=== PATIENT | male | born 1975 | race Caucasian/White ===

== ENCOUNTER 2019-12-25 04:27 | Emergency (ER) | payer OTHER ==
[~2019-12-25] VITALS: Ht 170.2 cm; Wt 83.2 kg
--- NOTE | 2019-12-25 04:29 | PHYS DOC ---
Past History Past Medical History: Anxiety, Depression, GI Bleed, Kidney Stones (LYNN EDWARDS MD) Past Surgical History Circumcision (LYNN EDWARDS MD) Smoking: Cigarettes (LYNN EDWARDS MD) General Adult HPI: HPI: ".. This gut pain .. started about 5 days ago.. my had me drink bottle of Mag. Citrate.. and I had diarrhea... but the pain persisted..and now it is much worse.. 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 Pt. works in [employer] at [place]. Pain is been present for the last 5 days but states it 6 times worse this morning. No history of bad food intake. No history of trauma. No recent overseas travel. 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 Pt normally very healthy. Patient has remote history of duodenal ulcers 2004 but has had no reoccurrence for years. Had a colonoscopy and EGD in 2004. No colon lesions or findings of inflammatory bowel. Had only duodenal ulcers on EGD.. Has had a history of 1 previous kidney stone. There is a family history of bone cancer. He has had short episodes of anxiety and depression after the of his . Patient does smoke. Last ate yesterday. Has not had any tarry stools. (LYNN EDWARDS MD) Review of Systems: Review of Systems: Constitutional: Denies fever or chills Eyes: Denies change in visual acuity HENT: Denies nasal congestion or sore throat Respiratory: Denies cough or shortness of breath Cardiovascular: Denies chest pain or edema GI: Complains of severe abdominal pain, nausea. Denies, vomiting, bloody stools or diarrhea : Denies dysuria Musculoskeletal: Denies back pain or joint pain Integument: Denies rash Neurologic: Denies headache, focal weakness or sensory changes Endocrine: Denies polyuria or polydipsia Lymphatic: Denies swollen glands Psychiatric: Denies depression or anxiety (LYNN EDWARDS MD) Heart Score: HEART Score for Chest Pain: HEART Score for Chest Pain Response (Comments) Value Risk Factors 1 or 2 Risk Factors 1 Total 1 Risk Factors: Risk Factors: DM, Current or recent (<one month) smoker, HTN, HLP, family history of CAD, obesity. Risk Scores: Score 0 - 3: 2.5% MACE over next 6 weeks - Discharge Home Score 4 - 6: 20.3% MACE over next 6 weeks - Admit for Clinical Observation Score 7 - 10: 72.7% MACE over next 6 weeks - Early Invasive Strategies (LYNN EDWARDS MD) Family History: Family History: Bone cancer (LYNN EDWARDS MD) Current Medications: Current Meds: See penitentiary meds (LYNN EDWARDS MD) Allergies: Allergies: No known drug allergies (LYNN EDWARDS MD) Physical Exam: PE: Constitutional: Well developed, well nourished, in acute distress, non-toxic appearance. [] HENT: Normocephalic, atraumatic, bilateral external ears normal, oropharynx moist, no oral exudates, nose normal. [] Eyes: PERRLA, EOMI, conjunctiva normal, no discharge. [] Neck: Normal range of motion, no tenderness, supple, no stridor. [] Cardiovascular:Heart rate regular rhythm, no murmur [] Lungs & Thorax: Bilateral breath sounds equal apexes scattered wheezes on auscultation [] Abdomen: Bowel sounds decreased, guarding, mild right upper quadrant, but marked right lower quadrant tenderness, no masses, no pulsatile masses. Rebound right lower quadrant. Circumcised male. Testicles descended. Skin: Warm, dry, no erythema, no rash. Tattoos. Small subcu lipomas Back: No tenderness, no CVA tenderness. [] Extremities: No tenderness, no cyanosis, no clubbing, ROM intact, no edema. Significantly positive psoas sign on right + heel Tap. Neurologic: Alert and oriented X 3, normal motor function, normal sensory functi on, no focal deficits noted. [] Psychologic: Affect anxious, judgement normal, mood normal. [] (LYNN EDWARDS MD) EKG: EKG: My interpretation EKG shows a sinus rhythm at 85 bpm. There is mild leftward axis changes. But no findings of acute STEMI of contralateral changes. [] (LYNN EDWADRS MD) Radiology/Procedures: Radiology/Procedures: [][address] [address] IMAGING REPORT Signed PATIENT: JAIRON PANTOJA DACCOUNT: [id number] : 1975 LOCATION: ER AGE: 44 SEX: M EXAM STATUS: REG ER ORD. PHYSICIAN: LYNN EDWARDS MD REASON: abdomen pain PROCEDURE: ACUTE ABDOMEN SERIES PA chest and AP upright supine abdomen x-rays HISTORY: Abdominal pain. FINDINGS: Heart size normal. Tortuosity/aneurysm of the ascending aorta. No pulmonary opacities. No pleural effusions. Mild scarring at the minor fissure. No pneumoperitoneum. No dilation of the bowel or abnormal air-fluid levels. Mild volume of stool within the large bowel. Bones and soft tissues are unremarkable. IMPRESSION: No acute process in the chest. No bowel obstruction evident. See above. Electronically signed by: Bhavik Greene MD (12/25/2019 5:18 AM) [facility] [place]CTATED AND SIGNED BY: BHAVIK GREENE MD DATE: 12/25/19517 CC: LYNN EDWARDS MD; PCP,UNKNOWN ~ (LYNN EDWARDS MD) Radiology/Procedures: [address] [address] IMAGING REPORT Signed PATIENT: JAIRON PANTOJA DACCOUNT: [id number] : 1975 LOCATION: ER AGE: 44 SEX: M EXAM STATUS: REG ER ORD. PHYSICIAN: LYNN EDWARDS MD REASON: severe rt. side abd. pain -[id number] PROCEDURE: CT ABD PELV W/ORAL&IV CONTRAST EXAMINATION: CT ABD PELV W/ORAL IV CONTRAST CLINICAL HISTORY: Severe right-sided abdominal pain TECHNIQUE: CT of the abdomen and pelvis was performed using standard technique, scanning from just above the dome of the diaphragm to the symphysis pubis following administration of intravenous contrast. CT Dose Reduction Employed: One or more of the following individualized dose reduction techniques were utilized for this examination: 1. Automated exposure control 2. Adjustment of the mA and/or kV according to patient size 3. Use of iterative reconstruction technique. COMPARISON: None FINDINGS: Lower thorax: Bibasilar dependent subsegmental atelectasis. Liver: Multiple hypoenhancing foci throughout the liver measuring up to 1 cm likely represent small cysts. Biliary: No bile duct dilation. Gallbladder is unremarkable. Spleen: No mass. No splenomegaly. Pancreas: No mass or duct dilation. Adrenals: No mass. Kidneys: Probable subcentimeter cyst in the right lower pole. No calculus or hydronephrosis. GI tract: No dilation or wall thickening. Dilated appendix measuring up to 1.4 cm in diameter with appendiceal wall thickening. Moderate periappendiceal inflammatory stranding and adjacent mild dependent free fluid. No visualized appendicolith or evidence of periappendiceal abscess. Lymph nodes: No abdominal or pelvic lymphadenopathy. Mesentery/Peritoneum: No ascites or mass. Retroperitoneum: No mass. Vasculature: The celiac axis and SMA are patent. The portal vein and branches, splenic vein, SMV, and hepatic veins are patent. Arterial atherosclerotic disease without aneurysm. Pelvis: No mass, ascites or fluid collection. Mildly filled urinary bladder. Coarse central prostatic calcifications. Bones/Soft Tissues: Thoracolumbar degenerative changes. Intraosseous hemangioma in the L4 vertebral body. IMPRESSION: Acute appendicitis with moderate periappendiceal inflammation as described. FOR INTERNAL CODING PURPOSES Critical result: Findings discussed with LYNN EDWARDS at 12/25/2019 7:36 AM. RESULT CODE: (C) Electronically signed by: Deejay Tamayo DO (12/25/2019 7:43 AM) [id number] DICTATED AND SIGNED BY: DEEJAY TAMAYO DO DATE: 12/25/19 0743 CC: LYNN EDWARDS MD; PCP,UNKNOWN; IBIS ESCAMILLA DO ~ (IBIS ESCAMILLA DO) Course & Med Decision Making: Course & Med Decision Making Pertinent Labs and Imaging studies reviewed. (See chart for details) COVID test ordered for possible transfer and surgical admission. Pt. 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 Pt. vomiting 0600. Pt. endorsed to Dr. Escamilla at shift change. He will make disposition on pt. I had pt sign transfer authorization shorty after presentation. . I suspect acute appendicitis. Plan transfer for surgery. CT pending at shift change. Will cover with Rocephin/ Flagyl. Impression: 1. Abdomen Pain- Clinical exam consistent with acute appendicitis 2. Leukocytosis 13. 2 [] (LYNN EDWARDS MD) Course & Med Decision Making I have received signout on the patient's emergency department care from Dr. Edwards. We discussed the history, physical exam findings, completed and pending laboratory results and imaging studies. We have also discussed the current treatment plan and expected clinical course. Please refer to further update notes for additional information regarding the patient's final diagnosis and disposition. In brief patient is a 44-year-old male who presents with chief complaint of abdominal pain associated with vomiting. On initial arrival exam notable for peritonitis and guarding. CT imaging does reveal acute appendicitis. Leukocytosis of 13,000. No previous surgical history. Patient will require transfer to [facility] for surgical care. He has been given Rocephin and Flagyl. Pain is been well controlled. He has been made n.p.o. discussed case with surgeon Dr. Ferris who will evaluate the patient for surgical intervention today. Patient will be transferred to [facility] for further care. (IBIS ESCAMILLA DO) Dragon Disclaimer: Dragon Disclaimer: This electronic medical record was generated, in whole or in part, using a voice recognition dictation system. (LYNN EDWARDS MD) Departure Departure: Impression: Primary Impression: Acute appendicitis Qualified Codes: K35.30 - Acute appendicitis with localized peritonitis, without perforation or gangrene Disposition: XF [facility] Condition: STABLE Referrals: PCP,UNKNOWN (PCP) Dragon Disclaimer This chart was dictated in whole or in part using Voice Recognition software in a busy, high-work load, and often noisy Emergency Department environment. It may contain unintended and wholly unrecognized errors or omissions. (LYNN EDWARDS MD) Dragon Disclaimer This chart was dictated in whole or in part using Voice Recognition software in a busy, high-work load, and often noisy Emergency Department environment. It may contain unintended and wholly unrecognized errors or omissions. (LYNN EDWARDS MD) LYNN EDWARDS MD Dec 25, 2019 04:29 IBIS ESCAMILLA DO Dec 25, 2019 07:47
[2019-12-25] MEDS ORDERED: MORPHINE SULFATE 10 MG/ML SYRINGE. SQ ONE (05:00)
[2019-12-25] MEDS ORDERED: IV RINGERS SOLUTION,LACTATED 1,000 ML IV SCH (05:00)
[2019-12-25] MEDS ORDERED: FAMOTIDINE 20 MG/2 ML VIAL IVP ONE (05:00)
[2019-12-25] MEDS ORDERED: ONDANSETRON PF 4 MG/2 ML VIAL. IVP ONE ×2 (05:00→06:00)
--- NOTE | 2019-12-25 05:21 | RAD ---
PA chest and AP upright supine abdomen x-rays HISTORY: Abdominal pain. FINDINGS: Heart size normal. Tortuosity/aneurysm of the ascending aorta. No pulmonary opacities. No pleural effusions. Mild scarring at the minor fissure. No pneumoperitoneum. No dilation of the bowel or abnormal air-fluid levels. Mild volume of stool within the large bowel. Bones and soft tissues are unremarkable. IMPRESSION: No acute process in the chest. No bowel obstruction evident. See above. Electronically signed by: Ja Greene MD (12/25/2019 5:18 AM) [facility]
[2019-12-25] MEDS ORDERED: cefTRIAXone SODIUM 1 GM VIAL ONE (05:44)
[2019-12-25] MEDS ORDERED: IV NORMAL SALINE 50ML 50 ML ONE (05:44)
[2019-12-25 05:45] LABS: BARBITURATES NEG (NEG); BENZODIAZEPINES NEG (NEG); CANNABINOIDS NEG (NEG); COCAINE NEG (NEG); METHADONE NEG (NEG); OPIATES NEG (NEG); PHENCYCLIDINE NEG (NEG)
[2019-12-25] MEDS ORDERED: IOHEXOL 240 MG/ML 50ML VIAL. PO ONE ×2 (05:45→06:00)
[2019-12-25] MEDS ORDERED: IOHEXOL 300 MG/ML 75 ML VIAL. IV ONE ×2 (05:45→06:00)
[2019-12-25 05:46] LABS: CALCIUM 8.7 mg/dL (8.5-10.1); GFR 81.9; POTASSIUM 3.3 mmol/L (3.5-5.1)
[2019-12-25 05:48] LABS: BASO % 0 % (0-3); EOS # 0.1 x10^3/uL (0.0-0.7); EOS % 1 % (0-3); HEMATOCRIT 50.3 % (39.0-53.0); HEMOGLOBIN 16.9 g/dL (13.0-17.5); LYMPH # 2.8 x10^3/uL (1.0-4.8); LYMPH % 21 % (24-48); MEAN CORPUSCULAR HEMOGLOBIN 33 pg (25-35); MEAN CORPUSCULAR HGB CONC 34 g/dL (31-37); MEAN CORPUSCULAR VOLUME 99 fL (79-100); MONO % 8 % (0-9); NEUT # 9.3 x10^3uL (1.8-7.7); NEUT % 70 % (31-73); PLATELET COUNT 275 x10^3/uL (140-400); RED BLOOD COUNT 5.09 x10^6/uL (4.30-5.70); WHITE BLOOD COUNT 13.2 x10^3/uL (4.0-11.0)
[2019-12-25 05:51] LABS: BACTERIA,URINE FEW /HPF (0-FEW); BILIRUBIN,URINE NEG (NEG); CLARITY,URINE HAZY; COLOR,URINE AMBER; GLUCOSE,URINE NEG (NEG); NITRITE,URINE NEG (NEG); SQUAMOUS EPITHELIAL CELL,UR OCC /LPF; UROBILINOGEN,URINE 0.2 mg/dL (0.2 mg/dL); WBC,URINE 0 /HPF (0-4)
[2019-12-25 05:52] LABS: ALBUMIN 3.7 g/dL (3.4-5.0); DIRECT BILIRUBIN 0.1 mg/dL (0.0-0.2); TOTAL BILIRUBIN 0.3 mg/dL (0.2-1.0); TOTAL PROTEIN 7.3 g/dL (6.4-8.2)
[2019-12-25 05:52] LABS: SPERM,URINE PRESENT /HPF
[2019-12-25 05:56] LABS: AMPHETAMINE/METHAMPHETAMINE NEG (NEG)
[2019-12-25] MEDS ORDERED: CONTRAST GIVEN. MC PRN (06:15)
[2019-12-25] MEDS ORDERED: HYDROmorphone PF 1 MG/ML DISP.SYRIN IV ONE ×2 (06:30→08:30)
--- NOTE | 2019-12-25 06:54 | EKG ---
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
--- NOTE | 2019-12-25 07:46 | RAD ---
EXAMINATION: CT ABD PELV W/ORAL IV CONTRAST CLINICAL HISTORY: Severe right-sided abdominal pain TECHNIQUE: CT of the abdomen and pelvis was performed using standard technique, scanning from just above the dome of the diaphragm to the symphysis pubis following administration of intravenous contrast. CT Dose Reduction Employed: One or more of the following individualized dose reduction techniques were utilized for this examination: 1. Automated exposure control 2. Adjustment of the mA and/or kV according to patient size 3. Use of iterative reconstruction technique. COMPARISON: None FINDINGS: Lower thorax: Bibasilar dependent subsegmental atelectasis. Liver: Multiple hypoenhancing foci throughout the liver measuring up to 1 cm likely represent small cysts. Biliary: No bile duct dilation. Gallbladder is unremarkable. Spleen: No mass. No splenomegaly. Pancreas: No mass or duct dilation. Adrenals: No mass. Kidneys: Probable subcentimeter cyst in the right lower pole. No calculus or hydronephrosis. GI tract: No dilation or wall thickening. Dilated appendix measuring up to 1.4 cm in diameter with appendiceal wall thickening. Moderate periappendiceal inflammatory stranding and adjacent mild dependent free fluid. No visualized appendicolith or evidence of periappendiceal abscess. Lymph nodes: No abdominal or pelvic lymphadenopathy. Mesentery/Peritoneum: No ascites or mass. Retroperitoneum: No mass. Vasculature: The celiac axis and SMA are patent. The portal vein and branches, splenic vein, SMV, and hepatic veins are patent. Arterial atherosclerotic disease without aneurysm. Pelvis: No mass, ascites or fluid collection. Mildly filled urinary bladder. Coarse central prostatic calcifications. Bones/Soft Tissues: Thoracolumbar degenerative changes. Intraosseous hemangioma in the L4 vertebral body. IMPRESSION: Acute appendicitis with moderate periappendiceal inflammation as described. FOR INTERNAL CODING PURPOSES Critical result: Findings discussed with LYNN BREWER at 12/25/2019 7:36 AM. RESULT CODE: (C) Electronically signed by: Deejay Joel DO (12/25/2019 7:43 AM) [id number]
[2019-12-25] MEDS ORDERED: IV NORMAL SALINE 1,000ML 1,000 ML IV ONE (08:00)
[2019-12-25] MEDS ORDERED: KETAMINE HCL 500 MG/10 ML VIAL. IV ONE (10:30)
[2019-12-25 10:38] VITALS: BP 135/86
== END 2019-12-25 10:47 | disposition short-term general hospital (02) ==
LOC: ER 04:27
DX: K35.30 Acute appendicitis with localized peritonitis, without perforation or gangrene (principal); F17.210 Nicotine dependence, cigarettes, uncomplicated; Z87.442 Personal history of urinary calculi
CPT/HCPCS: 36415; 74022; 74177; 80048; 80076; 80307; 81001; 82150; 82550; 83605; 83690; 84484; 85025; 85610; 85730; 93005; 96361; 96365; 96368; 96372; 96375; 96376; 99285; J0696; J1170; J2270; J2405; J3490; J7030; J7120; Q9966; Q9967

== ENCOUNTER 2020-05-24 15:33 | Emergency (ER) | payer OTHER ==
[~2020-05-24] VITALS: Ht 170.2 cm; Wt 83.2 kg
[2020-05-24 15:43] VITALS: BP 135/86
[2020-05-24] MEDS ORDERED: MORPHINE SULFATE 4 MG/ML DISP.SYRIN. IV ONE (16:15)
[2020-05-24] MEDS ORDERED: ONDANSETRON PF 4 MG/2 ML VIAL. IVP ONE (16:15)
[2020-05-24] MEDS ORDERED: KETOROLAC 30 MG/ML VIAL. IVP ONE (16:15)
[2020-05-24] MEDS ORDERED: IV NORMAL SALINE 1,000ML 1,000 ML IV ONE (16:15)
--- NOTE | 2020-05-24 16:35 | RAD ---
Exam: CT of abdomen and pelvis without contrast INDICATION: Left-sided flank pain TECHNIQUE: Sequential axial images through the abdomen and pelvis obtained without IV contrast. Sagit rom and coronal reformatted images were reconstructed from the axial data and reviewed. Comparisons: 12/25/2019 FINDINGS: Heart size is normal. No pericardial effusion. Strandy opacities at dependent portion lungs likely re presenting atelectasis. No pleural effusion Evaluation of solid organs is limited secondary to noncontrast technique. Diffuse hepatic steatosis. There is a vague hypoattenuating lesion at the mid right hepatic lobe seri es 2 image 45. Spleen, pancreas, gallbladder and adrenals are unremarkable. There is a 2 mm calculus at the left ureterovesicular junction. Mild left-sided hydronephrosis is not ed. No other renal or ureteral calculi are identified. Bladder is partially distended and not well evaluated. Prostate is not enlarged. Large and small bowel are unremarkable. Appendix is not identified. No free intra-abdominal air or fl uid. No obstruction. Abdominal aorta has a normal course and caliber. No enlarged intra-abdominal lymph nodes are identified. No suspicious osseous lesions or acute fractures. IMPRESSION: 1. A 2 mm calculus at the left ureterovesicular junction with mild left-sided hydronephrosis. 2. Diffuse hepatic steatosis. Exposure: One or more of the following in the visualized dose reduction techniques were utilized for this examination: 1. Automated exposure control 2. Adjustment of the MA and/or KV according to patient size 3. Use of iterative of reconstructive technique Electronically signed by: Beatris Haddad MD (05/24/2020 4:33 PM) [facility]
--- NOTE | 2020-05-24 16:44 | PHYS DOC ---
Past History Past Medical History: Anxiety, Depression, GI Bleed, Kidney Stones Past Surgical History: Other Additional Past Surgical Histo: hemorrhoidectomy; EGD/colonoscopy Smoking: Cigarettes Alcohol Use: Rarely Adult General Chief Complaint Chief Complaint: FLANK PAIN [facility] HPI Patient is a 45-year-old male who presents to the emergency room complaining of left-sided flank pain that feels like he is being stabbed repeatedly. He states he had similar pain in 2012 when he had a kidney stone. He is not a kidney stone since that time. He does have some burning with urination but denies any other urinary symptoms. He denies any, nausea or vomiting. Is not had any known fever. Pain has been constant since noon today. It did let up a little bit around 2:00 but then came back much worse. Review of Systems Review of Systems Complete ROS is negative unless otherwise documented in HPI Current Medications Current Medications Current Medications Medications (Trade) Dose Ordered Sig/Ramin Start Time Stop Time Status Last Admin Dose Admin Ketorolac Tromethamine (Toradol 30mg Vial) 30 mg 1X ONCE 05/24/20 16:15 05/24/20 16:26 DC Morphine Sulfate (Morphine 4mg Syringe) 4 mg 1X ONCE 05/24/20 16:15 05/24/20 16:26 DC Ondansetron HCl (Zofran) 4 mg 1X ONCE 05/24/20 16:15 05/24/20 16:26 DC Sodium Chloride 1,000 ml @ 1,000 mls/hr 1X ONCE 05/24/20 16:15 05/24/20 17:14 Allergies Allergies Allergies Coded Allergies Type Severity Reaction Last Updated Verified No Known Drug Allergies 12/25/19 No Physical Exam Physical Exam General: Awake, alert, tearful. Well Nourished, well hydrated. Cooperative HEENT: Atraumatic, EOMI, PERRL, airway patent, moist oral mucosa Neck: Supple, trachea midline Respiratory: CTA bilaterally, normal effort, no wheezing/crackles CV: RRR, no murmur, cap refill <2 GI: Soft, nondistended, nontender, no masses MSK: No obvious deformities Skin: Warm, dry, intact Neuro: A&O x3, speech NL, sensory and motor grossly intact, no focal deficits Psych: Normal affect, normal mood, not suicidal or homicidal EKG EKG [] Radiology/Procedures Radiology/Procedures [] Heart Score Risk Factors: Risk Factors: DM, Current or recent (<one month) smoker, HTN, HLP, family history of CAD, obesity. Risk Scores: Risk Factors: DM, Current or recent (<one month) smoker, HTN, HLP, family history of CAD, obesity. Course & Med Decision Making Course & Med Decision Making Pertinent Labs and Imaging studies reviewed. (See chart for details) Patient is a 45 year old who presents to the Emergency Room complaining of flank pain. On exam, patient is tearful and has a soft nonacute abdomen. Patient's presentation is concerning for a possible kidney stone. Patient was given morphine and Toradol for pain relief. CBC, BMP, UA were ordered to evaluate for kidney function and infection. CT abdomen and pelvis without contrast was ordered to evaluate for a kidney stone. CT shows 2 mm stone. At this time, patient does not have significant infection, signs of sepsis, TANIA, or uncontrolled pain that requires admission. Patient will be treated symptomatically and referred to urology. Patient's test results and vitals while in the ED were fully reviewed and discussed with the patient. Patient is stable and at this time does not need admission to the hospital. We have discussed strict return precautions and the importance of following up with their Primary Care Physician. Patient stated understanding and was given an opportunity to ask any questions. Patient is in agreement with plan. Dragon Disclaimer Dragon Disclaimer This electronic medical record was generated, in whole or in part, using a voice recognition dictation system. Departure Departure: Impression: Primary Impression: Kidney stone Disposition: 01 DC HOME SELF CARE/HOMELESS Condition: STABLE Referrals: DARBY CAICEDO DO (PCP) Patient Instructions: Kidney Stones Scripts Oxycodone HCl/Acetaminophen (Percocet 5-325 mg Tablet) 1 Each Tablet 1 TAB PO PRN TID PRN for PAIN MDD 3 Tablet(s) for 5 Days, #15 TAB 0 Refills Prov: KEVIN LINARES MD 05/24/20 KEVIN LINARES MD May 24, 2020 16:44
[2020-05-24 16:56] LABS: BASO % 1 % (0-3); EOS % 1 % (0-3); HEMATOCRIT 47.1 % (39.0-53.0); HEMOGLOBIN 16.2 g/dL (13.0-17.5); LYMPH # 2.3 x10^3/uL (1.0-4.8); LYMPH % 34 % (24-48); MEAN CORPUSCULAR HEMOGLOBIN 36 pg (25-35); MEAN CORPUSCULAR HGB CONC 34 g/dL (31-37); MEAN CORPUSCULAR VOLUME 103 fL (79-100); MONO # 0.7 x10^3/uL (0.0-1.1); MONO % 10 % (0-9); NEUT # 3.6 x10^3uL (1.8-7.7); NEUT % 55 % (31-73); PLATELET COUNT 229 x10^3/uL (140-400); RED BLOOD COUNT 4.56 x10^6/uL (4.30-5.70); RED CELL DISTRIBUTION WIDTH 15.5 % (11.5-14.5); WHITE BLOOD COUNT 6.7 x10^3/uL (4.0-11.0)
[2020-05-24 17:19] LABS: CALCIUM 8.4 mg/dL (8.5-10.1); CREATININE 1.1 mg/dL (0.7-1.3); GFR 73.1; POTASSIUM 3.4 mmol/L (3.5-5.1)
[2020-05-24] MEDS ORDERED: OXYC-325 PO (17:25)
[2020-05-24] MEDS ORDERED: oxyCODONE/APAP 10/325 1 TAB TABLET PO ONE (17:30)
[2020-05-24 18:19] LABS: BILIRUBIN,URINE SMALL (NEG); CLARITY,URINE CLEAR; COLOR,URINE AMBER; GLUCOSE,URINE NEG (NEG)
[2020-05-24 18:20] LABS: BACTERIA,URINE 0 /HPF (0-FEW); NITRITE,URINE POS (NEG); RBC,URINE 20-40 /HPF (0-2); WBC,URINE 0 /HPF (0-4)
== END 2020-05-24 17:46 | disposition home or self-care (01) ==
LOC: ER 15:33
DX: N20.0 Calculus of kidney (principal); F17.210 Nicotine dependence, cigarettes, uncomplicated
CPT/HCPCS: 36415; 74176; 80048; 81001; 85025; 87086; 96361; 96374; 96375; 99284; J1885; J2270; J2405; J7030

== ENCOUNTER 2021-07-14 18:27 | Emergency (ER) | payer OTHER ==
[~2021-07-14] VITALS: Ht 167.6 cm; Wt 80.9 kg
[~2021-07-14 18:27] MED LIST: OXYC-325 PO
[2021-07-14] MEDS ORDERED: clonazePAM 0.5 MG TABLET PO PRN (19:15)
[2021-07-14] MEDS ORDERED: NICOTINE 21MG PATCH. TD ONE (19:15)
[2021-07-14] MEDS ORDERED: IBUPROFEN 600 MG TABLET. PO ONE (19:15)
--- NOTE | 2021-07-14 19:21 | EKG ---
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
[2021-07-14] MEDS ORDERED: clonazePAM 1 MG TABLET ONE (19:24)
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
[2021-07-14 20:01] LABS: BARBITURATES NEG (NEG); BENZODIAZEPINES NEG (NEG); CANNABINOIDS NEG (NEG); COCAINE NEG (NEG); METHADONE NEG (NEG); PHENCYCLIDINE NEG (NEG)
[2021-07-14 20:15] LABS: AMPHETAMINE/METHAMPHETAMINE NEG (NEG)
[2021-07-14 20:16] LABS: CLARITY,URINE CLEAR; COLOR,URINE YELLOW
[2021-07-14 20:17] LABS: BACTERIA,URINE 0 /HPF (0-FEW); GLUCOSE,URINE NEG (NEG); NITRITE,URINE NEG (NEG); RBC,URINE RARE /HPF (0-2); UROBILINOGEN,URINE 0.2 mg/dL (0.2 mg/dL); WBC,URINE 0 /HPF (0-4)
[2021-07-14 21:04] LABS: BASO # 0.1 x10^3/uL (0.0-0.2); BASO % 1 % (0-3); EOS # 0.1 x10^3/uL (0.0-0.7); EOS % 1 % (0-3); HEMATOCRIT 48.5 % (39.0-53.0); HEMOGLOBIN 16.7 g/dL (13.0-17.5); LYMPH # 3.7 x10^3/uL (1.0-4.8); LYMPH % 48 % (24-48); MEAN CORPUSCULAR HEMOGLOBIN 33 pg (25-35); MEAN CORPUSCULAR HGB CONC 34 g/dL (31-37); MEAN CORPUSCULAR VOLUME 94 fL (79-100); MONO # 0.4 x10^3/uL (0.0-1.1); MONO % 5 % (0-9); NEUT # 3.5 x10^3uL (1.8-7.7); NEUT % 45 % (31-73); PLATELET COUNT 262 x10^3/uL (140-400); RED BLOOD COUNT 5.14 x10^6/uL (4.30-5.70); RED CELL DISTRIBUTION WIDTH 14.7 % (11.5-14.5); WHITE BLOOD COUNT 7.7 x10^3/uL (4.0-11.0)
[2021-07-14 21:13] LABS: CALCIUM 8.5 mg/dL (8.5-10.1); GFR 81.2; POTASSIUM 4.5 mmol/L (3.5-5.1)
[2021-07-15] MEDS ORDERED: LORazepam 1 MG TABLET PO ONE ×2 (01:30→06:30)
[2021-07-15 03:02] LABS: ANION GAP 11 (6-14); BLOOD UREA NITROGEN 7 mg/dL (8-26); BUN/CREATININE RATIO 7 (6-20); CALCIUM 8.6 mg/dL (8.5-10.1); CARBON DIOXIDE 24 mmol/L (21-32); CHLORIDE 106 mmol/L (98-107); GFR 81.2; GLUCOSE 88 mg/dL (70-99); POTASSIUM 4.5 mmol/L (3.5-5.1); SODIUM 141 mmol/L (136-145)
[2021-07-15 03:08] LABS: ALT (SGPT) 23 U/L (16-63); AST (SGOT) 15 U/L (15-37); TOTAL BILIRUBIN 0.4 mg/dL (0.2-1.0); TOTAL PROTEIN 7.2 g/dL (6.4-8.2)
[2021-07-15 03:11] LABS: ACETAMIN < 2.0 mcg/mL (10-30); SALIC 4.6 mg/dL (2.8-20.0)
[2021-07-15 03:12] LABS: ALBUMIN 0.6 g/dL (3.4-5.0); ALBUMIN/GLOBULIN RATIO 0.1 (1.0-1.7); ALK PHOS < 10 U/L (46-116)
[2021-07-15] MEDS ORDERED: NICOTINE 21MG PATCH. TD ONE (06:21)
[2021-07-15 07:12] VITALS: BP 127/53
== END 2021-07-15 07:51 ==
LOC: ER 18:27 → EEVIPCON 18:27 → ER 07-15 07:51
DX: R45.851 Suicidal ideations (principal); F41.9 Anxiety disorder, unspecified; F32.9 Major depressive disorder, single episode, unspecified; F10.229 Alcohol dependence with intoxication, unspecified; Z87.442 Personal history of urinary calculi; Z20.822 Contact with and (suspected) exposure to COVID-19; Y90.8 Blood alcohol level of 240 mg/100 ml or more
CPT/HCPCS: 36415; 80048; 80053; 80307; 80329; 81001; 83735; 85025; 87426; 93005; 99285; C9803; G0480; U0003